=== PATIENT | female | born 1980 | race Caucasian/White ===

== ENCOUNTER → 2020-07-03 | Outpatient (CLI) | payer OTHER ==
[~2020-07-03] MED LIST: ALENDRONATE SOD70 MG PO; BREO ELLIPTA 11 EACH INH; CARAFATE1 GM PO; CEFUROXIME500 MG PO; FERROUS SULFAT325 M2 PO; LEVOFLOXACIN500 MG PO; MEDROL DOSEPAK 24 MG PO; NORCO 5-325 TA1 EACH PO; OMEPRAZOLE20 MG PO; PREDNISONE5 MG PO; REGLAN5 MG PO; VIBRAMYCIN100 MG PO; ZOFRAN4 MG PO; [UNRECOGNIZED DRUG - OTHER] INJ
== END ==
LOC: EXRD 08:04
DX: R05 Cough (principal); M04.2 Cryopyrin-associated periodic syndromes; R91.1 Solitary pulmonary nodule
CPT/HCPCS: 71046

== ENCOUNTER → 2020-07-22 | Outpatient (CLI) | payer OTHER | LOC: HEART 5 09:38 | DX: R05 Cough (principal); R06.09 Other forms of dyspnea | CPT/HCPCS: 94060; 94729 ==

== ENCOUNTER → 2020-07-24 | Outpatient (CLI) | payer OTHER | LOC: RT 08:16 | DX: J84.89 Other specified interstitial pulmonary diseases (principal) | CPT/HCPCS: 36600; 82803 ==

== ENCOUNTER → 2020-07-31 | Outpatient (CLI) | payer OTHER | LOC: CT 07-30 13:30 | DX: R76.8 Other specified abnormal immunological findings in serum (principal); R93.89 Abnormal findings on diagnostic imaging of other specified body structures; R05 Cough; R59.0 Localized enlarged lymph nodes | CPT/HCPCS: 36415; 82565; Q9967 ==

== ENCOUNTER → 2020-08-10 | Outpatient (CLI) | payer OTHER | LOC: CT 07:47 | DX: R93.89 Abnormal findings on diagnostic imaging of other specified body structures (principal); R05 Cough; R59.0 Localized enlarged lymph nodes; R76.8 Other specified abnormal immunological findings in serum | CPT/HCPCS: 71260; Q9967 ==

== ENCOUNTER → 2020-09-24 | Outpatient (CLI) | payer OTHER ==
[~2020-09-24] MED LIST changes: +DRISDOL1250 MCG PO; +IBU800 MG PO; +OMNICEF 300 MG300 MG PO; +TRAMADOL HCL50 MG PO; -[UNRECOGNIZED DRUG - OTHER] INJ; +[UNRECOGNIZED DRUG - OTHER] SC
== END ==
LOC: HEART 5 10:34
DX: J84.89 Other specified interstitial pulmonary diseases (principal)
CPT/HCPCS: 94060; 94729

== ENCOUNTER 2020-10-28 07:53 | Emergency (ER) | payer OTHER ==
[~2020-10-28] VITALS: Ht 167.6 cm; Wt 77.1 kg
[~2020-10-28 07:53] MED LIST changes: -DRISDOL1250 MCG PO; -IBU800 MG PO; -OMNICEF 300 MG300 MG PO; -TRAMADOL HCL50 MG PO
[2020-10-28 10:30] LABS: HEMOGLOBIN 13.7 gm/dl (12.3-15.3); RED BLOOD COUNT 3.88 M/UL (4.00-5.10); WHITE BLOOD COUNT 10.8 K/UL (4.5-11.0)
[2020-10-28 11:02] LABS: BUN/CREATININE RATIO 18 (0-10)
[2020-10-28] MEDS ORDERED: OMNICEF 300 MG300 MG PO ×2 (14:18→17:42)
[2020-10-28] MEDS ORDERED: OMEPRAZOLE20 MG PO (14:44)
[2020-10-28] MEDS ORDERED: IBU800 MG PO (14:44)
[2020-10-28] MEDS ORDERED: TRAMADOL HCL50 MG PO (14:45)
[2020-10-28] MEDS ORDERED: DRISDOL1250 MCG PO (14:45)
== END 2020-10-28 17:50 | disposition home or self-care (01) ==
LOC: ER1 07:53 → CDU 13:28
PROVIDERS: Emergency Medicine
DX: N39.0 Urinary tract infection, site not specified (principal); E87.6 Hypokalemia; M04.2 Cryopyrin-associated periodic syndromes; Z90.49 Acquired absence of other specified parts of digestive tract; Z20.822 Contact with and (suspected) exposure to COVID-19
CPT/HCPCS: 71045; 80053; 81001; 82550; 82553; 83735; 83874; 84484; 85025; 87040; 87077; 87086; 87186; 93005; 96374; 96375; 99285; J0696; U0002

== ENCOUNTER 2021-11-15 13:18 | Emergency (ER) | payer OTHER ==
[~2021-11-15 13:18] MED LIST changes: +DRISDOL1250 MCG PO; +IBU800 MG PO; +OMNICEF 300 MG300 MG PO; +TRAMADOL HCL50 MG PO
== END 2021-11-15 13:50 | disposition left against medical advice (07) ==
LOC: ER1 13:18
DX: Z53.21 Procedure and treatment not carried out due to patient leaving prior to being seen by health care provider (principal)